=== PATIENT | female | born 1995 | race Asian ===

== ENCOUNTER 2020-12-29 22:17 | Emergency (ER) | payer OTHER ==
[~2020-12-29] VITALS: Ht 162.6 cm; Wt 70.3 kg
[2020-12-29 22:27] VITALS: BP 115/72
--- NOTE | 2020-12-29 22:29 | NUR ---
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
[2020-12-29] MEDS ORDERED: LIDODERM700 M1 TOPIC (22:41)
[2020-12-29] MEDS ORDERED: ROBAXIN-750750 MG PO (22:41)
--- NOTE | 2020-12-29 22:41 | Emergency Room Report ---
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 She denies any numbness, midline back pain, subsequent syncope/fall, nausea, vomiting, diarrhea, melena, hem atochezia. Denies saddle anesthesia, urinary retention, bowel or bladder dysfunction. She was sent by her boss for Workmen's Comp. complaint. Her boss gave her ibuprofen prior to arrival and she currently rates her pain 1 out of 10. The patient's symptoms were gradual onset, severity was moderate, duration since a few hours. Quality: Aching Past medical history: Denies Past surgical history: Denies Smoking: Denies Alcohol use: Denies Drug use: Denies Review of systems: CONST: No fevers or chills, No night sweats PULMONARY: No productive cough, No shortness of breath CARDIAC: No chest pain, No palpitations GI: No vomiting, No diarrhea , No melena_or_BRBPR : No dysuria, No hematuria, No discharge NEURO: No new_focal_weakness_or_numbness, No confusion, No vision changes 14 point Review of Systems is otherwise negative except per HPI Physical Exam: GENERAL: Awake_alert_ nontoxic, no acute distress Spo2 95% on RA -normal EYES: Extraocular muscles are intact. Conjunctivae clear. Lids without swelling ENT: External nose and ear normal_in_appearance. Oropharynx clear. Head_atraumatic, Moist_oral_mucosa NECK: No JVD. No meningismus. No thyromegaly. Supple. Trachea midline. No midline cervical, thoracic, lumbar spinal step-off or deformity. RESP: Normal respiratory effort. Symmetric rise. No stridor. Clear_to_auscultation_No_rales_No_wheezes CARDIAC: Regular rate and regular rhytm. No_significant pedal edema. ABDOMEN: Soft. Nondistended. Nontender_No_rebound_or_guarding. No pelvic instability MSK: Normal muscle tone, without rigidity. Extremities without asymmetric deformity or swelling. SKIN: Warm and dry. No visible cyanosis or pallor NEUROLOGIC: Alert, oriented x3. Motor_and_sensation_grossly_intact. No truncal ataxia. Gait_normal Psych: Normal mood and affect, normal judgment and insight - COORDINATION OF CARE Case was discussed with: Patient Medical Decision Making/Plan:. Differential diagnosis includes musculoskeletal pain, muscle spasm / sprain, DOUBT vertebral fracture, spinal epidural abscess, spinal epidural hematoma, pyelonephritis, kidney stone, AAA, among others. Vitals are unremarkable. On exam, pulses are equal and symmetric bilaterally. No focal neurologic deficits noted. The patient has no significant red flags on history or exam. No mechanism for significant trauma. Patient has no vertebral deformity or midline tenderness and has a normal gait. Patient has no significant risk factors for spinal epidural emergency such as fever, IVDU, HIV, or anticoagulant use. Patient is neurologically intact without any lower extremity weakness / numbness, saddle anesthesia, urinary retention or fecal incontinence. No evidence of any emergent process of the spinal cord or cauda equina at this time. The patients symptoms appear consistent with a musculoskeletal origin. Advised no heavy lifting x1 week. Will clear to work in 3 days. Advised continuation of NSAIDs. Will prescribe Robaxin and Lidoderm patch at home. Off work note given. Workmen's Comp. form filed. The patient was counseled that they need to see their primary medical doctor in the next 1-2 days for reevaluation and further treatment, and to return immediately if symptoms change or worsen. 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 Patient History Now: No Physical Exam Vital Signs Date Time Temp Pulse Resp B/P (MAP) Pulse Ox O2 Delivery O2 Flow Rate FiO2 12/29/20 22:24 98.2 60 15 115/72 (86) 100 Room Air Sp02 EP Interpretation: reviewed, normal Medical Decision Making Diagnostic Impression: Primary Impression: Injury of back Additional Impression: Low back ache Last Vital Signs Date Time Temp Pulse Resp B/P (MAP) Pulse Ox O2 Delivery O2 Flow Rate FiO2 12/29/20 22:27 98.2 15 115/72 100 Room Air 12/29/20 22:24 60 Disposition: HOME, SELF-CARE Admit Decision Time: 22:40 Condition: Stable Scripts Lidocaine Patch* (Lidoderm Patch*) 1 Each Adh..patch 1 PATCH TOPIC DAILY, #7 PATCH 0 Refills Patch(es) may remain in place for up to 12 hours in any 24-hour period. Prov: Neisha Mtz D.O. 12/29/20 Methocarbamol* (ROBAXIN-750*) 750 Mg Tablet 750 MG PO TID, #21 TAB 0 Refills Prov: Neisha Mtz D.O. 12/29/20 Referrals: NOT CHOSEN IPA/MD,REFERRING (PCP) Patient Instructions: Back Injury Prevention, Back Pain, Adult Additional Instructions: Instructions for patient/cost estimator: Follow up with your physician in 1-2 days. Avoid heavy lifting. Do not take Robaxin and drive or combine with alcohol as it is potentially sedating Follow-up with your doctor sooner if your condition requires a more timely clinical reevaluation. Return to the emergency department immediately if you feel that your condition is worsening or if you have any new or concerning symptoms. Review your discharge instructions and take any prescriptions given as instruc chandana. [facility] PROVIDES FREE OR LOW-COST HEALTH SERVICES TO PEOPLE WHO CAN SHOW PROOF THAT THEY LIVE IN [facility]. TO FIND MORE CLINICS PARTNERED WITH [facility] TO PROVIDE SERVICE, PLEASE CALL . Neisha Mtz D.O. Dec 29, 2020 22:41
[2020-12-29 23:01] VITALS: BP 115/72
== END 2020-12-29 23:02 | disposition home or self-care (01) ==
LOC: EMR 22:31
DX: S39.012A Strain of muscle, fascia and tendon of lower back, initial encounter (principal); X50.0XXA Overexertion from strenuous movement or load, initial encounter; Y93.F2 Activity, caregiving, lifting; Y92.9 Unspecified place or not applicable
CPT/HCPCS: 99282